=== PATIENT | male | born 1935 | race Caucasian/White ===

== ENCOUNTER 2019-08-09 00:33 | Outpatient (CLI) | payer MEDICARE | END 2019-08-09 00:34 | disposition EMS.NT | LOC: EMS 00:33 | PROVIDERS: ATTEND Surgery | DX: K92.1 Melena (principal); R19.7 Diarrhea, unspecified ==

== ENCOUNTER 2019-08-09 02:06 | Observation (INO) | payer MEDICARE ==
--- NOTE | 2019-08-09 02:14 | ED Physician Documentation ---
History of Present Illness - Stated complaint Stated Complaint: DIARRHEA W/BLOOD - History obtained from History obtained from: Patient (The patient is an otherwise healthy 84-year-old male who had 5 episodes of bright red blood per rectum tonight he came to the emergency room for evaluation he reports mild abdominal pain and cramping denies any syncopal episodes denies any trauma denies taking any anticoagulants or antiplatelets.Patient denies any recent travel outside the country denies any recent antibiotic use. Denies any excessive alcohol use.) Review of Systems Constitutional: reports: Reviewed and negative Eyes: reports: Reviewed and negative Ears: reports: Reviewed and negative Nose: reports: Reviewed and negative Throat: reports: Reviewed and negative Cardiac: reports: Reviewed and negative Respiratory: reports: Reviewed and negative GI: reports: Bloody / black stool : reports: Reviewed and negative Skin: reports: Reviewed and negative Musculoskeletal: reports: Reviewed and negative Neurologic: reports: Reviewed and negative Psychiatric: reports: Reviewed and negative Endocrine: reports: Reviewed and negative Immunocompromised: reports: Reviewed and negative PD PAST MEDICAL HISTORY - Present Medications Home Medications: Ambulatory Orders Medication Instructions Recorded Confirmed Acetaminophen [Tylenol] 650 mg PO Q6H PRN 08/09/19 08/09/19 Aspirin Chewable [St Addy 81 mg PO DAILY 08/09/19 08/09/19 Aspirin] Gabapentin 400 mg PO TID 08/09/19 08/09/19 Tamsulosin HCl [Flomax] 0.4 mg PO DAILY 08/09/19 08/09/19 - Allergies Allergies/Adverse Reactions: Allergies Allergy/AdvReac Type Severity Reaction Status Date / Time No Known Drug Allergies Allergy Verified 08/09/19 02:27 PD ED PE NORMAL - Vitals Vital signs reviewed: Yes - General General: Alert and oriented X 3, No acute distress, Well developed/nourished - HEENT HEENT: Atraumatic, PERRL, Pharynx benign - Neck Neck: Supple, no meningeal sign - Cardiac Cardiac: RRR, No murmur, Strong equal pulses - Respiratory Respiratory: No respiratory distress, Clear bilaterally - Abdomen Abdomen: Normal bowel sounds, Soft, Non tender, Non distended, No organomegaly - Rectal Rectal: Other (Good rectal tone, no obvious fissures or fistulas his Hemoccult is grossly positive there is no obvious rectal masses there is stool in the rectal vault no prostate masses palpated) - Derm Derm: Warm and dry - Extremities Extremities: No deformity, No edema - Neuro Neuro: Alert and oriented X 3, heat treat supervisor 2-12 intact, No motor deficit, No sensory deficit, Normal speech - Psych Psych: Normal mood, Normal affect Results - Vitals Vitals: Vital Signs - 24 hr 08/09/19 08/09/19 08/09/19 02:15 02:43 03:48 Temperature 36.8 C Heart Rate 84 85 77 Respiratory 17 18 16 Rate Blood Pressure 171/98 H 163/92 H 153/74 H O2 Saturation 97 96 96 08/09/19 04:02 Temperature Heart Rate 78 Respiratory 16 Rate Blood Pressure 137/76 H O2 Saturation 96 Oxygen O2 Source Room air - EKG (time done) 02:30 Rate: Other (No STEMI) - Labs Labs: Microbiology 08/09/19 02:30 Occult Blood - Final Stool Laboratory Tests 08/09/19 08/09/19 08/09/19 02:30 02:30 02:30 WBC 6.1 RBC 4.75 Hgb 14.8 Hct 42.8 MCV 90.1 MCH 31.2 H MCHC 34.6 RDW 12.8 Plt Count 173 MPV 11.0 Neut # (Auto) 4.7 Lymph # (Auto) 0.7 L Mchenry # (Auto) 0.5 Eos # (Auto) 0.1 Baso # (Auto) 0.0 Absolute Nucleated RBC 0.00 Nucleated RBC % 0.0 PT 12.8 H INR 1.1 APTT 28.2 Sodium 136 Potassium 3.5 Chloride 104 Carbon Dioxide 24 Anion Gap 8.0 BUN 18 Creatinine 0.9 Estimated GFR (MDRD) 81 L Glucose 119 H Lactic Acid Calcium 8.5 Total Bilirubin 1.1 H AST 33 ALT 27 Alkaline Phosphatase 50 Troponin I High Sens Total Protein 6.6 L Albumin 4.2 Globulin 2.4 Albumin/Globulin Ratio 1.8 Lipase 27 Urine Color Urine Clarity Urine pH Ur Specific [place] Urine Protein Urine Glucose (UA) Urine Ketones Urine Occult Blood Urine Nitrite Urine Bilirubin Urine Urobilinogen Ur Leukocyte Esterase Ur Microscopic Review Urine Culture Comments 08/09/19 08/09/19 08/09/19 02:30 02:30 03:14 WBC RBC Hgb Hct MCV MCH MCHC RDW Plt Count MPV Neut # (Auto) Lymph # (Auto) Mchenry # (Auto) Eos # (Auto) Baso # (Auto) Absolute Nucleated RBC Nucleated RBC % PT INR APTT Sodium Potassium Chloride Carbon Dioxide Anion Gap BUN Creatinine Estimated GFR (MDRD) Glucose Lactic Acid 1.0 Calcium Total Bilirubin AST ALT Alkaline Phosphatase Troponin I High Sens 13.0 Total Protein Albumin Globulin Albumin/Globulin Ratio Lipase Urine Color YELLOW Urine Clarity CLEAR Urine pH 5.5 Ur Specific [place] >=1.030 H Urine Protein NEGATIVE Urine Glucose (UA) NEGATIVE Urine Ketones 15 H Urine Occult Blood NEGATIVE Urine Nitrite NEGATIVE Urine Bilirubin NEGATIVE Urine Urobilinogen 0.2 (NORMAL) Ur Leukocyte Esterase NEGATIVE Ur Microscopic Review NOT INDICATED Urine Culture Comments NOT INDICATED PD MEDICAL DECISION MAKING - ED course Complexity details: considered differential (Lower GI bleed, internal hemorrho ids, Polyps, diverticulitis, diverticulosis, diverticular bleed) - Consults Consults: Discussed case with (gen surg dr gracia and im dr oviedo, will admit, type and screen and keep npo for colonoscopy. patient updated and agreeable to stay) - Critical Care Time(min): 30 Time Includes: Direct patient care, Review records, Reassess patient, Document care, Coordinate care, Medical consult Procedures included in critical care time: Peripheral IV, Blood draw Procedures excluded from critical care time: EKG Departure - Departure Disposition: 66 [facility] DC/Xfer Clinical Impression: Rectal bleeding, Diverticular hemorrhage
[2019-08-09 02:44] LABS: BASOPHILS % (AUTO) 0.5 %; EOSINOPHILS # (AUTO) 0.1 10^3/uL (0.0-0.7); EOSINOPHILS % (AUTO) 1.1 %; HGB - HEMOGLOBIN 14.8 g/dL (14.0-18.0); LYMPHOCYTES # (AUTO) 0.7 10^3/uL (1.5-3.5); LYMPHOCYTES % (AUTO) 11.7 %; MEAN CORPUSCULAR HEMOGLOBIN 31.2 pg (27.0-31.0); MEAN CORPUSCULAR HGB CONC 34.6 g/dL (32.0-36.0); MEAN CORPUSCULAR VOLUME 90.1 fL (80.0-94.0); MONOCYTES # (AUTO) 0.5 10^3/uL (0.0-1.0); MONOCYTES % (AUTO) 8.4 %; NEUTROPHILS # (AUTO) 4.7 10^3/uL (1.5-6.6); NEUTROPHILS % (AUTO) 77.8 %; PLT - PLATELET COUNT 173 10^3/uL (130-450); RED BLOOD COUNT 4.75 10^6/uL (4.70-6.10); RED CELL DISTRIBUTION WIDTH 12.8 % (12.0-15.0); WHITE BLOOD COUNT 6.1 x10^3/uL (4.8-10.8)
--- NOTE | 2019-08-09 02:57 | XRAY Report ---
Reason: cp Procedure Date: 08/09/2019 Accession Number: [id number] / [id number] Procedure: XR - Chest 1 View X-Ray CPT Code: 87138 Final Report FULL RESULT: EXAM: CHEST RADIOGRAPHY EXAM DATE: 08/09/2019 02:52 AM. CLINICAL HISTORY: Cp. COMPARISON: None. TECHNIQUE: 1 view. FINDINGS: Lungs/Pleura: No focal opacities evident. No pleural effusion. No pneumothorax. Mediastinum: Within exam limitations, the cardiomediastinal contour is normal. Other: None. IMPRESSION: Normal single view chest. RADIA
[2019-08-09 03:00] LABS: INR 1.1 (0.8-1.2); PT - PROTHROMBIN TIME 12.8 secs (9.9-12.6)
[2019-08-09 03:07] LABS: PARTIAL THROMBOPLASTIN TIME 28.2 secs (24.9-33.3)
[2019-08-09 03:21] LABS: ALBUMIN 4.2 g/dL (3.2-5.5); ALBUMIN/GLOBULIN RATIO 1.8 (1.0-2.2); BILIRUBIN,TOTAL 1.1 mg/dL (0.2-1.0); CALCIUM 8.5 mg/dL (8.5-10.3); CREATININE 0.9 mg/dL (0.6-1.2); TOTAL PROTEIN 6.6 g/dL (6.7-8.2)
[2019-08-09] MEDS ORDERED: IOVERSOL 320 100 ML VIAL IVP ONE ×2 (03:27→03:58)
[2019-08-09 03:36] LABS: BILIRUBIN,URINE NEGATIVE (NEGATIVE); GLUCOSE, URINE (UA) NEGATIVE (NEGATIVE); KETONES,URINE (UA) 15 mg/dL (NEGATIVE); LEUKOCYTE ESTERASE, URINE NEGATIVE (NEGATIVE); NITRITE,URINE NEGATIVE (NEGATIVE); OCCULT BLOOD,URINE NEGATIVE (NEGATIVE); PH,URINE 5.5 PH (5.0-7.5); PROTEIN,URINE NEGATIVE (NEGATIVE); UROBILINOGEN,URINE 0.2 (NORMAL) E.U./dL (NORMAL)
[2019-08-09 03:40] LABS: CLARITY,URINE CLEAR (CLEAR)
--- NOTE | 2019-08-09 04:07 | CT Report ---
Reason: abd pain brbpr Procedure Date: 08/09/2019 Accession Number: [id number] / [id number] Procedure: CT - Abdomen/Pelvis W CPT Code: Final Report FULL RESULT: EXAM: CT ABDOMEN AND PELVIS EXAM DATE: 08/09/2019 03:38 AM. CLINICAL HISTORY: Abdominal pain with bright red blood per rectum. COMPARISONS: None. TECHNIQUE: Routine helical CT imaging was performed through the abdomen and pelvis. IV contrast: OPTIRAY 320. Enteric contrast: No. Reconstructions: Coronal and sagittal. In accordance with CT protocol optimization, one or more of the following dose reduction techniques were utilized for this exam: automated exposure control, adjustment of mA and/or KV based on patient size, or use of iterative reconstructive technique. FINDINGS: Lung Bases: No focal consolidation seen. Small hiatal hernia. Liver: Possible fatty infiltration. Gallbladder/Bile Ducts: Unremarkable. Spleen: Normal. Pancreas: Normal. Adrenal Glands: Normal. Kidneys: Right renal cysts measuring up to 4.3 cm. No imaging follow-up is recommended per consensus recommendations based on imaging criteria. No mass or hydronephrosis seen bilaterally. Peritoneal Cavity/Bowel: No bowel obstruction seen. No free air or free fluid. Colonic diverticulosis without definite evidence of diverticulitis. There is some increased attenuation in the lumen of the sigmoid colon which could represent hemorrhage such as diverticular hemorrhage, for example series 3 image 70. No lymphadenopathy seen. Appendix appears normal. Pelvic Organs: Normal. The bladder and visualized pelvic organs are within normal limits. Vasculature: Moderate atherosclerosis. No aneurysm seen. Bones: Degenerative changes and postoperative changes in the spine. Grade 1 degenerative spondylolisthesis at L3-L4. Other: None. IMPRESSION: 1. Extensive colonic diverticulosis. Possible diverticular hemorrhage in the sigmoid colon. 2. No acute inflammatory or obstructive process seen in the abdomen or pelvis. 3. Possible fatty liver. 4. Small hiatal hernia. RADIA The critical result notification system was initiated by Dr. Chano Briseno at 04:02 AM on 08/09/2019. The above critical result findings were discussed with Jorge Olivares by Dr. Chano Briseno at 04:05 AM on 08/09/2019.
[2019-08-09] MEDS ORDERED: SODIUM CHLORIDE FLUSH 0.9% 10 ML SYRINGE IVP PRN (04:15)
[2019-08-09] MEDS ORDERED: MORPHINE 2 MG/ML CARPUJECT IVP PRN (04:15)
[2019-08-09] MEDS ORDERED: ONDANSETRON 4 MG/2 ML VIAL IVP PRN (04:15)
--- NOTE | 2019-08-09 04:20 | HISTORY & PHYSICAL EXAMINATION ---
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 He states his symptoms first began at around 5 PM and he had to more episodes of a large amount of bright red blood per rectum. He states he had similar symptoms 5 to 6 years ago which resolved on their own. He had a prior colonoscopy about 5 years ago which showed diverticulosis. He states he ate peanuts earlier on in the day which she feels may have exacerbated the bleeding. He reports some lower abdominal cramping associated with the bleeding as well as diarrhea that began after the bleeding. He reports no significant abdominal pain and denies nausea or vomiting. He re ports no dizziness, lightheadedness, syncope, chest pain, dyspnea. He reports having 3 abdominal surgeries in the past which include umbilical and ventral hernia repairs. He is taking a baby aspirin daily but is not on anticoagulation. In the emergency department, he is found to be hemodynamically stable and his hemoglobin was approximately 15. CT the abdomen pelvis was concerning for active diverticular hemorrhage. This was discussed with general surgery who recommended medicine admission and they will consult for colonoscopy. We did discuss goals of care and he would like to be a full code. History - Past Medical History Cardiovascular: reports: Hypertension Neuro: reports: Other (Neuropathy) : reports: Benign prostate hypertrophy MRSA Hx?: No - Past Surgical History General: reports: Other (Ventral and umbilical hernia repair) Ortho: reports: Spine surgery - Family & Social History Family History Comment/Other: He reports no family history to his knowledge. Living arrangement: At home Living Situation: With spouse/s.o. Social History Notes: He lives at home with his . He does not drink alcohol and denies smoking. - Substance History Use: Uses substance without health or social issues: NONE - POLST Patient has POLST: No Meds/Allgy - Home Medications Home Medications: Ambulatory Orders Medication Instructions Recorded Confirmed Acetaminophen [Tylenol] 650 mg PO Q6H PRN 08/09/19 08/09/19 Aspirin Chewable [St Addy 81 mg PO DAILY 08/09/19 08/09/19 Aspirin] Gabapentin 400 mg PO TID 08/09/19 08/09/19 Magnesium Oxide [Magnesium] ORAL BID 08/09/19 Tamsulosin HCl [Flomax] 0.4 mg PO DAILY 08/09/19 08/09/19 hydroCHLOROthiazide 25 mg PO DAILY 08/09/19 08/09/19 [Hydrochlorothiazide] - Allergies Allergies/Adverse Reactions: Allergies Allergy/AdvReac Type Severity Reaction Status Date / Time No Known Drug Allergies Allergy Verified 08/09/19 02:27 Review of Systems - Constitutional Constitutional: denies: Fatigue, Fever, Chills, Weakness, Poor appetite - Eyes Eyes: denies: Blurred vision - Cardiovascular Cariovascular: denies: Chest pain, Edema, Lightheadedness, Syncope, Exertional dyspnea, Decr. exercise tolerance - Respiratory Respiratory: denies: Cough, SOB at rest, SOB with exertion - Gastrointestinal Gastrointestinal: reports: Abdominal pain, Change in bowel habits, Rectal bleeding, Bloody stools - Genitourinary Genitourinary: denies: Dysuria, Frequency, Urgency, Hematuria - Musculoskeletal Musculoskeletal: denies: Muscle pain - Integumentary Integumentary: denies: Rash - Neurological Neurological: reports: Numbness. denies: General weakness, Focal weakness, Headache, Dizziness - Hematologic/Lymphatic Hematologic/Lymphatic: denies: Anemia, Bleeding tendencies - All Other Systems All Other Systems: reports: Reviewed and negative Prior Level of Functionality: He is independent with ADL's. Exam - Vital Signs Reviewed Vital Signs: Yes Vital Signs: Vital Signs x48h Temp Pulse Resp BP Pulse Ox 08/09/19 04:02 78 16 137/76 H 96 08/09/19 03:48 77 16 153/74 H 96 08/09/19 02:43 85 18 163/92 H 96 08/09/19 02:15 36.8 C 84 17 171/98 H 97 - Physical Exam General Appearance: positive: No acute distress, Alert Eyes Bilateral: positive: Normal inspection, Conjunctivae nml, No scleral icterus ENT: positive: ENT inspection nml Neck: positive: Nml inspection Respiratory: positive: No respiratory distress, Breath sounds nml. negative: Wheezes, Rales Cardiovascular: positive: Regular rate & rhythm, No murmur. negative: Irregularly irregular, Tachycardia, Bradycardia, Systolic murmur, Diastolic murmur Abdomen: positive: Non-tender, Nml bowel sounds, No distention, Other (Prior incisions from hernia repair noted). negative: Tenderness, Guarding, Rebound Skin: positive: No rash, Warm, Dry Extremities: positive: Full ROM, No pedal edema Neurologic/Psychiatric: positive: Oriented x3, Motor nml. negative: Disoriented to person, Disoriented to place, Disoriented to time Conclusion/Plan - Problem List (1) Diverticular hemorrhage Conclusion/Plan: His GI bleed is likely secondary to diverticular hemorrhage given the CT scan findings. His hemoglobin is fortunately stable and he is hemodynamically stable as well. We will make him n.p.o. and start him on lactated Ringer's IV. Morphine and Zofran as needed. General surgery has been consulted for colonoscopy. Trend hemoglobin every 8 hours. Hold his aspirin. (2) Hypertension Conclusion/Plan: He is slightly hypertensive with systolic in the 140s. We will hold his hydrochlorothiazide for the time being given the GI bleed. Qualifiers: Hypertension type: essential hypertension Qualified Code(s): I10 - Essential (primary) hypertension (3) Neuropathy Conclusion/Plan: This is secondary to spinal surgery. We will continue his home gabapentin. (4) BPH (benign prostatic hyperplasia) Conclusion/Plan: We will continue his home Flomax once he is taking p.o. - Lab Results Lab results reviewed: Yes Kt Bones: 08/09/19 02:30 08/09/19 02:30 - Diagnostic Imaging Results Diagnostic Imaging Results: positive: Final report reviewed Core Measures - Anticipated LOS I expect patient to be DC'd or transferred within 96 hours.: Yes - Issues Hospital Issues and Management Plan: 84 year old male with suspected diverticular hemorrhage. Will observe for further bleeding and consult general surgery for colonoscopy. - DVT/VTE - Prophylaxis VTE/DVT Device ordered at admit?: Yes VTE/DVT Prophylaxis med ordered at admit?: No Not Ordered - Medical Reason: Contraindicated
[2019-08-09] MEDS: SODIUM CHLORIDE FLUSH 0.9% 10 ML SYRINGE IVP SCH ×3 (05:20→23:31)
[2019-08-09] MEDS: LACTATED RINGERS 1,000 ML IV SCH ×2 (05:20→14:45)
[2019-08-09 08:08] LABS: HGB - HEMOGLOBIN 13.6 g/dL (14.0-18.0)
--- NOTE | 2019-08-09 10:28 | PHARMACY PROGRESS NOTE ---
- Best Possible Medication History Admit Date and Time: 08/09/19 0415 Processed by: Pharmacy Medication History completed: Yes Patient Interview: Completed Secondary Source(s): Pharmacy records As the person ultimately responsible for medication therapy, providers are able to order a medication from an existing home medication list in [facility] via the "Reconcile Routine" prior to Confirmation of that medication by contracting support specialist. Such practice is discouraged except when the physician, in their clinical judgment, deems that a medical need exists for a medication without regard to previous use.
--- NOTE | 2019-08-09 12:14 | CONSULTATION NOTE ---
Referring Provider Name of Referring Provider:: Dr. Olivares, ED Consult Date: 08/09/19 History of Present Illness - Admitted From Admitted From:: ED - History of Present Illness HPI Comment/Other: 84yo M with 12 hours of BRBPR, has had several episodes starting last night. He notes that he is chronically constipated and strains for BMs. He had a particularly large and hard BM yesterday evening and the bleeding started after that. He has known diverticulosis from his CT and from an episode a few years ago that was cramping pain but he was not given antibiotics. He was told then he had it. He was scheduled for a colonoscopy but could not tolerate the prep so it was not done. Never had bleeding episodes. No known hemorrhoids. He has some minimal discomfort and cramps in his pelvis but no pain or nausea. Vitals normal and Hg from 14-> 13 since admission. He is asymptomatic but is very anxious about the ongoing bleeding, which is understandable. He is generally in good health. He sees a PCP regularly who is associated with Amparo Ochoa. He has had two ventral hernia repairs but no other abdominal surgeries. History - Past Medical History Cardiovascular: reports: Hypertension Neuro: reports: Other (Neuropathy) GI: reports: Diverticulitis : reports: Benign prostate hypertrophy MRSA Hx?: No - Past Surgical History General: reports: Other (Ventral and umbilical hernia repair) Ortho: reports: Spine surgery - Family & Social History Family History Comment/Other: He reports no family history to his knowledge. Living arrangement: At home Living Situation: With spouse/s.o. Social History Notes: He lives at home with his . He does not drink alcohol and denies smoking. - Substance History Use: Uses substance without health or social issues: NONE - POLST Patient has POLST: No Meds/Allgy - Home Medications Home Medications: Ambulatory Orders Medication Instructions Recorded Confirmed Acetaminophen 500 mg PO BID 08/09/19 08/09/19 Aspirin Chewable [St Addy 81 mg PO DAILY 08/09/19 08/09/19 Aspirin] Gabapentin 400 mg PO DAILY 08/09/19 08/09/19 Gabapentin 800 mg PO QPM 08/09/19 08/09/19 Magnesium Malate 70 mg PO DAILY 08/09/19 08/09/19 Magnesium Malate 140 mg PO QPM 08/09/19 08/09/19 Tamsulosin HCl [Flomax] 0.4 mg PO DAILY 08/09/19 08/09/19 Trazodone HCl 50 mg PO QPM 08/09/19 08/09/19 hydroCHLOROthiazide 25 mg PO DAILY 08/09/19 08/09/19 [Hydrochlorothiazide] - Allergies Allergies/Adverse Reactions: Allergies Allergy/AdvReac Type Severity Reaction Status Date / Time No Known Drug Allergies Allergy Verified 08/09/19 02:27 Review of Systems - Gastrointestinal Gastrointestinal: reports: Constipation, Rectal bleeding - All Other Systems All Other Systems: reports: Reviewed and negative Exam - Vital Signs Reviewed Vital Signs: Yes Vital Signs: Vital Signs x48h Temp Pulse Pulse Resp BP BP Pulse Ox 08/09/19 08:45 36.6 C 81 18 154/78 H 98 08/09/19 05:06 36.8 C 82 16 146/77 H 98 08/09/19 04:36 85 16 152/77 H 96 - Physical Exam Comments/Other: AAO, NAD, overweight male EOMI, MMM unlabored RA soft, moderately protuberant, nt/nd MAEW skin dry and warm Conclusion and Plan - Lab Results Microbiology Results 08/09/19 02:30 Stool Occult Blood - Final Laboratory Results 08/09/19 07:58: Hgb 13.6 L, Hct 40.6 L 08/09/19 04:15: Blood Type A NEGATIVE, Antibody Screen NEGATIVE 08/09/19 03:14: Urine Color YELLOW, Urine Clarity CLEAR, Urine pH 5.5, Ur Specific [place] >=1.030 H, Urine Protein NEGATIVE, Urine Glucose (UA) NEGATIVE, Urine Ketones 15 H, Urine Occult Blood NEGATIVE, Urine Nitrite NEGATIVE, Urine Bilirubin NEGATIVE, Urine Urobilinogen 0.2 (NORMAL), Ur Leukocyte Esterase NEGATIVE, Ur Microscopic Review NOT INDICATED, Urine Culture Comments NOT INDICATED 08/09/19 02:35: Blood Type Recheck A NEGATIVE 08/09/19 02:30: Troponin I High Sens 13.0 08/09/19 02:30: Lactic Acid 1.0 08/09/19 02:30: Sodium 136, Potassium 3.5, Chloride 104, Carbon Dioxide 24, Anion Gap 8.0, BUN 18, Creatinine 0.9, Estimated GFR (MDRD) 81 L, Glucose 119 H, Calcium 8.5, Total Bilirubin 1.1 H, AST 33, ALT 27, Alkaline Phosphatase 50, Total Protein 6.6 L, Albumin 4.2, Globulin 2.4, Albumin/Globulin Ratio 1.8, Lipase 27 08/09/19 02:30: PT 12.8 H, INR 1.1, APTT 28.2 08/09/19 02:30: WBC 6.1, RBC 4.75, Hgb 14.8, Hct 42.8, MCV 90.1, MCH 31.2 H, MCHC 34.6, RDW 12.8, Plt Count 173, MPV 11.0, Neut # (Auto) 4.7, Lymph # (Auto) 0.7 L, Taliaferro # (Auto) 0.5, Eos # (Auto) 0.1, Baso # (Auto) 0.0, Absolute Nucleated RBC 0.00, Nucleated RBC % 0.0 - Diagnostic Imaging Results Diagnostic Imaging Results: positive: Final report reviewed - Diagnosis Diagnosis: blood per rectum. diverticulosis - Plan Plan: - spoke at length about the diagnosis and most likely pathology --> moderate volume BRBPR is generally internal hemorrhoids or diverticulosis. given his known diverticulosis on CT and his history of a particularly straining BM before onset, most likely this is his source. --> he defers rectal exam as he is sore from his numerous liquid BMs --> the vast majority of these are self-limiting and he has no concerning changes to Hg, vital signs, or symptoms; he is having ongoing bleeding for now so will be closely monitored --> in normal circumstances, we would prep and proceed with a diagnostic and possibly therapeutic colonoscopy. however, we are in the midst of the COVID crisis and the algorithm is changed. particularly in this patient where we have a highly likely source and the therapeutic options are usually limited. given all of this, we will plan to continue to closely monitor symptoms, vitals, and Hg. if he continues to having bleeding episodes, we will scope tomorrow. if continued bleeding after that, will look into transfer to a facility with IR --> pt understands and agrees to plan - ok for CLD today - will address his chronic constipation before discharge
[2019-08-09] MEDS: GABAPENTIN 400 MG CAPSULE PO SCH ×2 (13:29→20:34)
[2019-08-09 15:30] LABS: HGB - HEMOGLOBIN 12.2 g/dL (14.0-18.0)
[2019-08-09] MEDS ORDERED: traZODone 50 MG TABLET PO SCH (21:00)
[2019-08-09] MEDS ORDERED: MAGNESIUM OXIDE 400 MG TABLET PO SCH (21:00)
[2019-08-10] MEDS: LACTATED RINGERS 1,000 ML IV SCH (00:03)
[2019-08-10 05:23] LABS: BASOPHILS % (AUTO) 0.3 %; EOSINOPHILS % (AUTO) 0.3 %; HGB - HEMOGLOBIN 8.9 g/dL (14.0-18.0); MEAN CORPUSCULAR HEMOGLOBIN 30.9 pg (27.0-31.0); MEAN CORPUSCULAR HGB CONC 33.7 g/dL (32.0-36.0); MEAN CORPUSCULAR VOLUME 91.7 fL (80.0-94.0); MEAN PLATELET VOLUME 11.3 fL (7.4-11.4); MONOCYTES # (AUTO) 0.6 10^3/uL (0.0-1.0); NEUTROPHILS # (AUTO) 6.9 10^3/uL (1.5-6.6); NEUTROPHILS % (AUTO) 79.9 %; PLT - PLATELET COUNT 171 10^3/uL (130-450); RED BLOOD COUNT 2.88 10^6/uL (4.70-6.10); RED CELL DISTRIBUTION WIDTH 13.1 % (12.0-15.0); WHITE BLOOD COUNT 8.6 x10^3/uL (4.8-10.8)
[2019-08-10 05:34] LABS: CALCIUM 7.8 mg/dL (8.5-10.3); CREATININE 0.9 mg/dL (0.6-1.2); MAGNESIUM 2.1 mg/dL (1.7-2.8); PHOSPHORUS 2.5 mg/dL (2.5-4.6)
[2019-08-10] MEDS: GABAPENTIN 400 MG CAPSULE PO SCH (05:50)
[2019-08-10] MEDS: SODIUM CHLORIDE FLUSH 0.9% 10 ML SYRINGE IVP SCH (07:59)
[2019-08-10 11:38] VITALS: BP 116/50
--- NOTE | 2019-08-10 11:44 | PROVIDER PROGRESS NOTE ---
Subjective - General Admit Date: 08/09/19 - Other Other Information/Narrative: Doing well this morning, through yesterday evening and overnight the bloody BMs decreased; he only had one early this AM. Cramps have diminished. Hg has trended down but not unexpected after his larger volume stools earlier yesterday. He feels better and wants to go home. Objective - Patient Data Reviewed Vital Signs: Yes Vital Signs: Vital Signs x48h Temp Pulse Resp BP Pulse Ox 08/10/19 11:35 36.6 C 84 18 116/50 L 97 08/10/19 09:00 36.7 C 92 18 99/53 L 96 08/10/19 04:30 36.8 C 98 16 116/56 L 95 Weight: Weight 08/08/19 08/09/19 08/10/19 23:59 23:59 23:59 Weight (kg) 86.5 kg Intake & Output: Intake and Output Totals x24h 08/08/19 08/09/19 08/10/19 23:59 23:59 23:59 Intake Total 2241.667 2380 Output Total 1 Balance 2241.667 2379 - Lab Results Lab Results: 08/10/19 04:45 08/10/19 04:45 Other Lab Results: Lab Results x24hrs 08/10/19 08/10/19 08/09/19 Range/Units 04:45 04:45 22:06 WBC 8.6 (4.8-10.8) x10^3/uL RBC 2.88 L (4.70-6.10) 10^6/uL Hgb 8.9 L 10.0 L (14.0-18.0) g/dL Hct 26.4 L (42.0-52.0) % MCV 91.7 (80.0-94.0) fL MCH 30.9 (27.0-31.0) pg MCHC 33.7 (32.0-36.0) g/dL RDW 13.1 (12.0-15.0) % Plt Count 171 (130-450) 10^3/uL MPV 11.3 (7.4-11.4) fL Neut # (Auto) 6.9 H (1.5-6.6) 10^3/uL Lymph # (Auto) 1.0 L (1.5-3.5) 10^3/uL [place] # (Auto) 0.6 (0.0-1.0) 10^3/uL Eos # (Auto) 0.0 (0.0-0.7) 10^3/uL Baso # (Auto) 0.0 (0.0-0.1) 10^3/uL Absolute Nucleated RBC 0.00 x10^3/uL Nucleated RBC % 0.0 /100WBC Sodium 136 (135-145) mmol/L Potassium 3.7 (3.5-5.0) mmol/L Chloride 103 (101-111) mmol/L Carbon Dioxide 27 (21-32) mmol/L Anion Gap 6.0 (6-13) BUN 18 (6-20) mg/dL Creatinine 0.9 (0.6-1.2) mg/dL Estimated GFR (MDRD) 81 L (>89) Glucose 129 H (70-100) mg/dL Calcium 7.8 L (8.5-10.3) mg/dL Phosphorus 2.5 (2.5-4.6) mg/dL Magnesium 2.1 (1.7-2.8) mg/dL 08/09/19 Range/Units 15:05 WBC (4.8-10.8) x10^3/uL RBC (4.70-6.10) 10^6/uL Hgb 12.2 L (14.0-18.0) g/dL Hct 35.7 L (42.0-52.0) % MCV (80.0-94.0) fL MCH (27.0-31.0) pg MCHC (32.0-36.0) g/dL RDW (12.0-15.0) % Plt Count (130-450) 10^3/uL MPV (7.4-11.4) fL Neut # (Auto) (1.5-6.6) 10^3/uL Lymph # (Auto) (1.5-3.5) 10^3/uL [place] # (Auto) (0.0-1.0) 10^3/uL Eos # (Auto) (0.0-0.7) 10^3/uL Baso # (Auto) (0.0-0.1) 10^3/uL Absolute Nucleated RBC x10^3/uL Nucleated RBC % /100WBC Sodium (135-145) mmol/L Potassium (3.5-5.0) mmol/L Chloride (101-111) mmol/L Carbon Dioxide (21-32) mmol/L Anion Gap (6-13) BUN (6-20) mg/dL Creatinine (0.6-1.2) mg/dL Estimated GFR (MDRD) (>89) Glucose (70-100) mg/dL Calcium (8.5-10.3) mg/dL Phosphorus (2.5-4.6) mg/dL Magnesium (1.7-2.8) mg/dL - Current Medications Current Medications: Current Medications Generic Name Dose Route Start Last Admin Trade Name Davonteq PRN Reason Stop Dose Admin Gabapentin 400 mg 08/09/19 14:00 08/10/19 05:50 Neurontin PO 400 mg TID MELODIE Administration Magnesium Oxide 400 mg 08/09/19 21:00 08/09/19 20:34 Mag Ox PO 400 mg QPM MELODIE Administration Sodium Chloride 10 ml 08/09/19 09:00 08/10/19 07:59 Normal Saline Flush 0.9% IVP Not Given 0100,0900,1700 MELODIE Trazodone HCl 50 mg 08/09/19 21:00 08/09/19 20:34 Desyrel PO 50 mg QPM MELODIE Administration - Physical Exam Comments/Other: AAO, NAD EOMI, MMM unlabored RA abd soft MAEW skin warm and dry Impression/Plan - Problem List Problem List: LGIB; Diverticulosis - downtrending Hg likely catching up from losses earlier yesterday; asymptomatic, feeling better, only one bloody BM through evening and overnight - still do not recommend colonoscopy in hospital as situation remains unlikely to bonilla diagnosis or therapeutic benefits - cont' to monitor for plateau of Hg and if he continues to improve ok for d/c later with FU to PCP for scheduling scopes down the road - did review bowel regimen, celio fiber and water intake, to soften BMs; pt understands and his has been reading up on it at home; call our office or PCP with any questions
[2019-08-10 12:54] LABS: HGB - HEMOGLOBIN 8.8 g/dL (14.0-18.0)
--- NOTE | 2019-08-10 13:31 | Discharge Plan ---
Discharge Plan Problem Reviewed?: Yes Disposition: Home, Self Care Condition: Good No Smoking: If you smoke, Please STOP! Call for help. Follow-up with: MERA BROOKS MD [Primary Care Provider] -
--- NOTE | 2019-08-10 15:11 | DISCHARGE SUMMARY ---
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 He states his symptoms first began at around 5 PM and he had to more episodes of a large amount of bright red blood per rectum. He states he had similar symptoms 5 to 6 years ago which resolved on their own. He had a prior colonoscopy about 5 years ago which showed diverticulosis. He states he ate peanuts earlier on in the day which she feels may have exacerbated the bleeding. He reports some lower abdominal cramping associated with the bleeding as well as diarrhea that began after the bleeding. He reports no significant abdominal pain and denies nausea or vomiting. He re ports no dizziness, lightheadedness, syncope, chest pain, dyspnea. He reports having 3 abdominal surgeries in the past which include umbilical and ventral hernia repairs. He is taking a baby aspirin daily but is not on anticoagulation. In the emergency department, he is found to be hemodynamically stable and his hemoglobin was approximately 15. CT the abdomen pelvis was concerning for active diverticular hemorrhage. This was discussed with general surgery who recommended medicine admission and they will consult for colonoscopy. We did discuss goals of care and he would like to be a full code. - CONSULTS | PROCEDURES Consultations: General Surgery - Dr Hope Tabler Procedures: None - HOSPITAL COURSE Hospital Course: Patient was admitted for suspected lower GI bleed, likely from diverticular disease versus internal hemorrhoids. His initial hemoglobin and hematocrit were relatively normal also the patient was observed with difference of the colonoscopy based on current [employer] guidelines to minimize unnecessary procedures during the current coronavirus pandemic. Because the patient was hemodynamically stable, and a known source for the bleeding existed, it was felt to be safe to monitor so the patient was monitored overnight on a clear liquid diet and hemoglobin and hematocrit were repeated in the morning. Overnight his hemoglobin dropped from 10.0-8 point 9 in the morning, so this was rechecked 6 cellular hours later and it was relatively stable at 8.8 and 26.8. He also had several large bowel movements shortly after admission, and these became much less frequent and only had one on the day of discharge. Because the likelihood is that he had clotted the bleeding source, and he was hemodynamically stable, he was deemed to be safe for discharge and advised to pursue outpatient colonoscopy or return to the ER should he become symptomatic or have a return of the gross hematochezia which she presented with. In addition, because the patient does not have a known history of coronary artery disease I have recommended that he discontinue the use of aspirin to help prevent further GI bleed.He was counseled extensively as well on dietary recommendations such as high-fiber, plenty of water, etc. to avoid constipation and straining. - ALLERGIES Allergies/Adverse Reactions: Allergies Allergy/AdvReac Type Severity Reaction Status Date / Time No Known Drug Allergies Allergy Verified 08/09/19 02:27 - MEDICATIONS Home Medications: Ambulatory Orders Medication Instructions Recorded Confirmed Acetaminophen 500 mg PO BID 08/09/19 08/09/19 Gabapentin 400 mg PO DAILY 08/09/19 08/09/19 Gabapentin 800 mg PO QPM 08/09/19 08/09/19 Magnesium Malate 70 mg PO DAILY 08/09/19 08/09/19 Magnesium Malate 140 mg PO QPM 08/09/19 08/09/19 Tamsulosin HCl [Flomax] 0.4 mg PO DAILY 08/09/19 08/09/19 Trazodone HCl 50 mg PO QPM 08/09/19 08/09/19 hydroCHLOROthiazide 25 mg PO DAILY 08/09/19 08/09/19 [Hydrochlorothiazide] Gabapentin [Neurontin] 400 mg PO TID capsule 08/10/19 Magnesium Oxide [Mag Ox] 400 mg PO QPM tablet 08/10/19 - PHYSICAL EXAM AT DISCHARGE General Appearance: positive: No acute distress Eyes Bilateral: positive: Normal inspection ENT: positive: ENT inspection nml Neck: positive: Nml inspection Respiratory: positive: Chest non-tender, No respiratory distress, Breath sounds nml Cardiovascular: positive: Regular rate & rhythm, No murmur, No gallop Abdomen: positive: Non-tender, No organomegaly, Nml bowel sounds Skin: positive: Color nml Neurologic/Psychiatric: positive: Oriented x3, CN's nml (2-12) - LABS Result Diagrams: 08/10/19 12:45 08/10/19 04:45 - FOLLOW UP Follow Up: PCP - TIME SPENT Time Spent in Discharge (Minutes): 32"
== END 2019-08-10 15:17 | disposition home or self-care (01) ==
LOC: ED 02:06 → MS2 04:15
PROVIDERS: ADMIT Internal Medicine; ATTEND Family Medicine Sports Medicine
DX: K57.31 Diverticulosis of large intestine without perforation or abscess with bleeding (principal); I10 Essential (primary) hypertension; G62.9 Polyneuropathy, unspecified; Z79.82 Long term (current) use of aspirin; N40.0 Benign prostatic hyperplasia without lower urinary tract symptoms; K59.09 Other constipation
CPT/HCPCS: 36415; 71045; 74177; 80048; 80053; 81003; 82272; 83605; 83690; 83735; 84100; 84484; 85014; 85018; 85025; 85610; 85730; 86850; 86900; 86901; 93005; 96360; 96361; 99285; 99291; A9270; G0378; J7120; Q9967; 81001; 87086

== ENCOUNTER 2020-05-22 00:13 | Observation (INO) | payer MEDICARE, OTHER ==
[2020-05-22 00:49] LABS: BASOPHILS % (AUTO) 0.3 %; EOSINOPHILS # (AUTO) 0.1 10^3/uL (0.0-0.7); EOSINOPHILS % (AUTO) 1.6 %; HGB - HEMOGLOBIN 15.9 g/dL (14.0-18.0); LYMPHOCYTES % (AUTO) 11.5 %; MEAN CORPUSCULAR HEMOGLOBIN 30.3 pg (27.0-31.0); MEAN CORPUSCULAR HGB CONC 33.3 g/dL (32.0-36.0); MEAN PLATELET VOLUME 11.5 fL (7.4-11.4); MONOCYTES # (AUTO) 0.7 10^3/uL (0.0-1.0); MONOCYTES % (AUTO) 7.5 %; NEUTROPHILS # (AUTO) 6.9 10^3/uL (1.5-6.6); NEUTROPHILS % (AUTO) 78.9 %; PLT - PLATELET COUNT 192 10^3/uL (130-450); RED BLOOD COUNT 5.25 10^6/uL (4.70-6.10); WHITE BLOOD COUNT 8.8 x10^3/uL (4.8-10.8)
[2020-05-22 01:02] LABS: ALBUMIN 4.7 g/dL (3.2-5.5); BILIRUBIN,TOTAL 0.9 mg/dL (0.2-1.0); CALCIUM 9.3 mg/dL (8.5-10.3); CREATININE 0.9 mg/dL (0.6-1.2)
--- NOTE | 2020-05-22 01:21 | ED Physician Documentation ---
PD HPI GI BLEED - Stated complaint Stated Complaint: RECTAL BLEEDING - Chief complaint Chief Complaint: Abd Pain - History obtained from History obtained from: Patient - History of Present Illness Timing - onset: Enter time (2100), Today Timing - duration: Hours Timing - details: Abrupt onset, Still present Associated symptoms: BRBPR Contributing factors: Aspirin use. No: Sick contact, Bad food, Travel, Recent antibiotics, Alcohol use, NSAID use, Stress, Anticoagulated, Diabetes Similar symptoms before: Diagnosis (rectal bleed site of bleeding never investigated.) Recently seen: Not recently seen - Additional information Additional information: 84-year-old male with history of diverticulitis, cardiomyopathy and prior GI bleeding has developed GI bleeding again. He notes that at about 930 this evening he had a bloody bowel movement after a brief episode of cramping abdominal pain. He had a second episode at 11 PM. He decided to make his way to the hospital because he has had this previously and with the previous episode he bled quite a bit was hospitalized for 2 days before bleeding ceased. The patient bled from a normal hematocrit down to 26.4. He did not require transfusion but he was unable to get the follow-up colonoscopy done. During the summer he did have an episode of fatigue and was eventually diagnosed with a cardiomyopathy and he has been on a diuretic. He does not his knowledge have any coronary disease. He has had 2 prior abdominal surgeries with a ventral hernia repair and an umbilical hernia repair. He did have colonoscopy done about 6 years ago and at that stage she did not tolerate the prep he became quite ill with that and they attempted to do the colonoscopy and found that the prep was insufficient. Review of Systems Constitutional: denies: Fever Eyes: denies: Decreased vision Ears: denies: Ear pain Nose: denies: Rhinorrhea / runny nose, Congestion Throat: denies: Sore throat Cardiac: denies: Chest pain / pressure, Palpitations Respiratory: denies: Dyspnea, Cough GI: reports: Abdominal Pain, Bloody / black stool. denies: Nausea, Vomiting, Constipation, Diarrhea : denies: Dysuria, Frequency Skin: denies: Rash Musculoskeletal: denies: Neck pain, Back pain, Extremity pain PD PAST MEDICAL HISTORY - Past Medical History Past Medical History: Yes Cardiovascular: Hypertension Neuro: Other GI: Diverticulitis, Other : Benign prostate hypertrophy Other Past Medical History: GIB - Past Surgical History Past Surgical History: Yes General: Other Ortho: Spine surgery - Present Medications Home Medications: Ambulatory Orders Medication Instructions Recorded Confirmed Acetaminophen 500 mg PO BID 08/09/19 05/22/20 Gabapentin 400 mg PO DAILY 08/09/19 08/09/19 Gabapentin 800 mg PO QPM 08/09/19 08/09/19 Magnesium Malate 70 mg PO DAILY 08/09/19 08/09/19 Magnesium Malate 140 mg PO QPM 08/09/19 08/09/19 Tamsulosin HCl [Flomax] 0.4 mg PO DAILY 08/09/19 05/22/20 Trazodone HCl 50 mg PO QPM 08/09/19 05/22/20 hydroCHLOROthiazide 25 mg PO DAILY 08/09/19 05/22/20 [Hydrochlorothiazide] Gabapentin [Neurontin] 400 mg PO TID capsule 08/10/19 05/22/20 Magnesium Oxide [Mag Ox] 400 mg PO QPM tablet 08/10/19 - Allergies Allergies/Adverse Reactions: Allergies Allergy/AdvReac Type Severity Reaction Status Date / Time No Known Drug Allergies Allergy Verified 05/22/20 00:24 - Social History Does the pt smoke?: No Smoking Status: Never smoker Does the pt drink ETOH?: No Does the pt have substance abuse?: No - Immunizations Immunizations are current?: Yes - POLST Patient has POLST: No PD ED PE NORMAL - Vitals Vital signs reviewed: Yes (hypertensive ) - General General: Alert and oriented X 3, No acute distress, Well developed/nourished - HEENT HEENT: Atraumatic, PERRL, EOMI - Neck Neck: Supple, no meningeal sign, No bony TTP - Cardiac Cardiac: RRR, No murmur - Respiratory Respiratory: No respiratory distress, Clear bilaterally - Abdomen Abdomen: Normal bowel sounds, Soft, Non tender, Non distended - Back Back: No CVA TTP, No spinal TTP - Derm Derm: Normal color, Warm and dry, No rash - Extremities Extremities: No deformity, No edema - Neuro Neuro: Alert and oriented X 3, 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, No motor deficit, No sensory deficit, Normal speech Eye Opening: Spontaneous Motor: Obeys Commands Verbal: Oriented GCS Score: 15 - Psych Psych: Normal mood, Normal affect Results - Vitals Vitals: Vital Signs - 24 hr 05/22/20 05/22/20 00:21 00:23 Temperature 36.2 C L 36.2 C L Heart Rate 91 78 Respiratory 16 17 Rate Blood Pressure 190/84 H 166/91 H O2 Saturation 96 95 Oxygen O2 Source Room air - Labs Labs: Laboratory Tests 05/22/20 05/22/20 05/22/20 00:35 00:35 00:48 WBC 8.8 RBC 5.25 Hgb 15.9 Hct 47.8 MCV 91.0 MCH 30.3 MCHC 33.3 RDW 13.0 Plt Count 192 MPV 11.5 H Neut # (Auto) 6.9 H Lymph # (Auto) 1.0 L [place] # (Auto) 0.7 Eos # (Auto) 0.1 Baso # (Auto) 0.0 Absolute Nucleated RBC 0.00 Nucleated RBC % 0.0 Sodium 137 Potassium 3.8 Chloride 104 Carbon Dioxide 24 Anion Gap 9.0 BUN 18 Creatinine 0.9 Estimated GFR (MDRD) 81 L Glucose 121 H Calcium 9.3 Total Bilirubin 0.9 AST 32 ALT 30 Alkaline Phosphatase 59 Total Protein 7.0 Albumin 4.7 Globulin 2.3 Albumin/Globulin Ratio 2.0 Lipase 23 Blood Type A NEGATIVE Antibody Screen NEGATIVE PD MEDICAL DECISION MAKING - ED course Complexity details: reviewed old records, reviewed results, re-evaluated patient, considered differential, d/w patient ED course: 84-year-old male with a prior history of GI bleed and has again developed bright red blood per rectum he has had another episode here while he has been here in the emergency department of a fair amount of blood out per rectum and he has had a prior history where he had bleeding for 2 days and nearly required transfusion. In anticipation of hospitalization a coronavirus PCR is obtained. The patient has been immunized he has received his first dose 1 week ago. I discussed the case with our hospitalist Dr. Cat and she will put the patient into the hospital for observation. Departure - Departure Disposition: ED Place in Observation Clinical Impression: Rectal bleeding
[2020-05-22] MEDS ORDERED: SODIUM CHLORIDE FLUSH 0.9% 10 ML SYRINGE IVP PRN (01:42)
[2020-05-22] MEDS ORDERED: oxyCODONE 5 MG TABLET PO PRN (01:42)
[2020-05-22] MEDS ORDERED: ONDANSETRON 4 MG/2 ML VIAL IVP PRN (01:42)
[2020-05-22] MEDS ORDERED: ONDANSETRON ODT 4 MG TABLET TL PRN (01:42)
[2020-05-22] MEDS ORDERED: ACETAMINOPHEN 325 MG TABLET PO PRN (01:42)
--- NOTE | 2020-05-22 01:53 | HISTORY & PHYSICAL EXAMINATION ---
Chief Complaint - Chief Complaint Chief Complaint: Bright red blood per rectum History of Present Illness - Admitted From Admitted From:: Home - History Obtained From Records Reviewed: [facility] History obtained from: Patient and Dr. Pichardo Exam Limitations: None - History of Present Illness HPI Comment/Other: This is an 84-year-old gentleman who has a history of probable diverticulosis from a colonoscopy 6 years ago, previous history of lower GI bleed July 2019, and now returns with recurrent rectal bleeding. He states that the colonoscopy 6 years ago was very difficult to do but there was no cancer. Just diverti culosis. In July 2019 (in the middle of the Covid crisis) he had bright red blood per rectum. He was on a daily baby aspirin. In the emergency room he was hemodynamically stable and his hemoglobin was 15. CT of the abdomen and pelvis was concerning for active diverticular hemorrhage. Over the course of his stay his hemoglobin dropped to 8.8. He then stabilized. Did not require transfusion. He did not get a colonoscopy at that time because of the recommendations for reducing elective procedures in the midst of Covid. Between then and now, the patient has not been seen for colonoscopy. He did see cardiology (Dr. Beltran @ [facility])who put him on a diuretic for a diagnosis Of viral cardiomyopathy with fluid retention. Nobody ever really said he needed to follow-up colonoscopy, and his primary care provider (Dr Alistair Glover @ [facility] in [place]) felt that no further treatment was needed. The patient tends toward chronic constipation. That is been present all of his life. He uses a laxative with a mild stool softener, but does not drink much water. This current episode of bleeding is not associated with abdominal pain. He did have cramping. But no pain. No recent change in bowel or bladder habits. Has been eating a normal diet for him. No change in activities. He now presents with a bloody bowel movement that started after having severe crampy abdominal pain around 9:30 in the evening. In the emergency room he has had 3 bloody bowel movements. No fever, no chills. Blood pressure is hypertensive at 1661 90 systolic. He is not tachycardic. Hemoglobin is 15.9. Platelets 192. We are now placing him in observation for another possible lower GI bleed. History - Past Medical History Cardiovascular: reports: Congestive heart failure (viral cardiomyopathy. Dr. Beltran, Cardiology, [facility]), Hypertension Neuro: reports: Peripheral neuropathy (w chronic right leg numbness), Other (spinal stenosis w surgery) GI: reports: GI bleed (07/2019), Diverticulitis : reports: Benign prostate hypertrophy HEENT: reports: Other (cataracts. left eye done a few months ago) Psych: reports: Depression (due to adjustment disorder since son's 08/2019) Musculoskeletal: reports: Osteoarthritis (mild) MRSA Hx?: No - Past Surgical History General: reports: Other (ventral and umbilical hernia repairs) Ortho: reports: Spine surgery (3 times) HEENT: reports: Cataracts - Family & Social History Family History Comment/Other: Mom committed suicide around the age of 60. His parents marriage was a hard 1. His dad was kind of a "hard ass" and was abusive toward his mom. He decided to retire and he thinks his mom just could not take the idea of being home with them and kill herself. Dad around age 70 of congestive heart failure. 1 sister who is developing dementia. 2 sons. 1 of sudden due to obstructive sleep apnea and enlarged heart in August 2019. Other son is completely healthy in [place]. Living arrangement: At home Living Situation: With spouse/s.o. Social History Notes: He lives at home with his Second . He does not drink alcohol and denies smoking.Most of his life is spent in the [place] area. 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 He and his second had an initial home in [place] years ago. They only live there in the summer. That was about 15 years. Then they went to [place] and did not like it very much and came back to [place] and has lived in their own home for 15 years more. - Substance History Use: Uses substance without health or social issues: NONE Abuse: Recurrent use of substance despite neg consequences: NONE Dependence: Experiences withdrawal or developed tolerances: NONE - POLST Patient has POLST: No POLST Status: Full Code Meds/Allgy - Home Medications Home Medications: Ambulatory Orders Medication Instructions Recorded Confirmed Acetaminophen 500 mg PO BID 08/09/19 05/22/20 Gabapentin 400 mg PO DAILY 08/09/19 08/09/19 Gabapentin 800 mg PO QPM 08/09/19 08/09/19 Magnesium Malate 70 mg PO DAILY 08/09/19 08/09/19 Magnesium Malate 140 mg PO QPM 08/09/19 08/09/19 Tamsulosin HCl [Flomax] 0.4 mg PO DAILY 08/09/19 05/22/20 Trazodone HCl 50 mg PO QPM 08/09/19 05/22/20 hydroCHLOROthiazide 25 mg PO DAILY 08/09/19 05/22/20 [Hydrochlorothiazide] Gabapentin [Neurontin] 400 mg PO TID capsule 08/10/19 05/22/20 Magnesium Oxide [Mag Ox] 400 mg PO QPM tablet 08/10/19 - Allergies Allergies/Adverse Reactions: Allergies Allergy/AdvReac Type Severity Reaction Status Date / Time No Known Drug Allergies Allergy Verified 05/22/20 00:24 Review of Systems - Constitutional Constitutional: denies: Fatigue, Fever, Chills, Malaise, Poor appetite, Diaphoresis, Night sweats, Weight gain, Weight loss - Eyes Eyes: reports: Corrective lenses. denies: Pain, Irritation, Amaurosis, Blurred vision, Field loss, Vision loss, Dipolpia - Ears, Nose & Throat Ears, Nose & Throat: denies: Hearing loss, Hearing aids, Tinnitus, Vertigo, Nasal pain, Dentures, Sore throat - Cardiovascular Cariovascular: reports: Edema, Exertional dyspnea (In the summer. But once he was on a diuretic that is gone away.). denies: Irregular heart rate, Palpitations, Chest pain, Lightheadedness, Syncope, Decr. exercise tolerance - Respiratory Respiratory: denies: Cough, Sputum production, Wheezing, Snoring, Orthopnea, SOB at rest, SOB with exertion - Gastrointestinal Gastrointestinal: reports: Constipation, Rectal bleeding, Bloody stools. denies: Abdominal pain, Abdominal distention, Diarrhea, Change in bowel habits, Nausea, Vomiting, Reflux/heartburn, Bloating - Genitourinary Genitourinary: reports: Frequency, Urgency, Nocturia. denies: Dysuria - Musculoskeletal Musculoskeletal: reports: Back pain (Mild after his third surgery. He is very careful with his back.), Joint pain. denies: Muscle pain, Muscle aches - Integumentary Integumentary: reports: Other (Mild. He sees a fsr every 6 months for skin check.). denies: Rash, Pruritis, Lesions, Dryness - Neurological Neurological: reports: Numbness (Right leg and both feet). denies: General weakness, Focal weakness, Headache - Psychiatric Psychiatric: reports: Depression (With the of his son. Is been devastating. He is slowly starting to come out of it but he still has moments of disbelief that this even happened.). denies: Anxiety, Suicidal, Delusions, Hallucinations - Endocrine Endocrine: denies: Polyuria, Polydypsia, Polyphagia, Intolerance to cold, Intolerance to heat - Hematologic/Lymphatic Hematologic/Lymphatic: denies: Anemia, Bruising, Petechiae, Blood clots, Lymphad enopathy Prior Level of Functionality: Independent with activities of daily living. Able to dress himself, feed himself.He still does some light [employer] [place]. Does long walks 3 times a week. Does not use any durable medical equipment. Exam - Vital Signs Reviewed Vital Signs: Yes Vital Signs: Vital Signs x48h Temp Pulse Resp BP Pulse Ox 05/22/20 00:23 36.2 C L 78 17 166/91 H 95 05/22/20 00:21 36.2 C L 91 16 190/84 H 96 - Physical Exam General Appearance: positive: No acute distress, Alert, Other (Exceedingly pleasant white male who looks younger than stated age, completely comfortable in the emergency room gurney) Eyes Bilateral: positive: PERRL, EOMI ENT: positive: Pharynx nml, No signs of dehydration Neck: positive: No JVD. negative: Stiff neck Respiratory: positive: No respiratory distress. negative: Wheezes, Rales, Rhonchi Cardiovascular: positive: Regular rate & rhythm, Systolic murmur. negative: Gallop/S4, Friction rub Peripheral Pulses: positive: 1+ Abdomen: positive: Non-tender, No organomegaly, Nml bowel sounds, No distention Skin: positive: Warm, Dry. negative: Pallor Extremities: positive: Full ROM, No pedal edema Neurologic/Psychiatric: positive: Oriented x3, CN's nml (2-12), Motor nml Conclusion/Plan - Problem List (1) Rectal bleeding Conclusion/Plan: In the past this was presumed to be from diverticular bleeding. Unfortunately has not had any follow-up since last year's episode. Plan: Observation status Serial hemograms every 6 hours General surgery consult If hemoglobin starts to drop, type and cross and transfuse if drops below 8 I explained to him that the options would be possible surgical resection of jarrett story, or transfer to [facility] for embolization. I hope that we do not get to that point. We will see what general surgery says tomorrow. (2) Hypertension Conclusion/Plan: Not on any antihypertensives. With his last day he was mildly hypotensive at 90-110 systolic at discharge. There may be some anxiety at play here. We will continue to monitor. Qualifiers: Hypertension type: essential hypertension Qualified Code(s): I10 - Essential (primary) hypertension (3) Chronic systolic heart failure Conclusion/Plan: At this time without acute exacerbation. In summation is that it is systolic heart failure by his description with work-up with cardiology.He describes a stress test. No coronary angiogram. Plan: Only medication is a diuretic. We will hold off on that until we know where he is going with his hemoglobin and hematocrit and blood pressure (4) BPH (benign prostatic hyperplasia) Conclusion/Plan: Resume Flomax Qualifiers: Lower urinary tract symptom presence: symptoms absent Qualified Code(s): N40.0 - Benign prostatic hyperplasia without lower urinary tract symptoms - Lab Results Lab results reviewed: Yes Fish Bones: 05/22/20 00:35 05/22/20 00:35 - Diagnostic Imaging Results Diagnostic Imaging Results: positive: Final report reviewed Diagnostic Imaging Results Comments: CT of abdomen reviewed from August 09, 2019. Extensive colonic diverticulosis. Possible diverticular hemorrhage and sigmoid bowel. No acute inflammatory obstructive process seen. Possible fatty liver, small hiatal hernias. Core Measures - Anticipated LOS I expect patient to be DC'd or transferred within 96 hours.: Yes - DVT/VTE - Prophylaxis VTE/DVT Device ordered at admit?: Yes
[2020-05-22] MEDS ORDERED: LACTATED RINGERS 1,000 ML IV SCH (02:00)
[2020-05-22 02:25] LABS: C. PNEUMONIAE- RESP PCR PANEL NOT DETECTED
[2020-05-22 06:08] LABS: HGB - HEMOGLOBIN 14.3 g/dL (14.0-18.0)
--- NOTE | 2020-05-22 08:32 | PHARMACY PROGRESS NOTE ---
- Best Possible Medication History Admit Date and Time: 05/22/20 0142 Processed by: Pharmacy Medication History completed: Yes Patient Interview: Completed As the person ultimately responsible for medication therapy, providers are able to order a medication from an existing home medication list in [facility] via the "Reconcile Routine" prior to Confirmation of that medication by credit support counselor. Such practice is discouraged except when the physician, in their clinical madeleine gment, deems that a medical need exists for a medication without regard to previous use.
[2020-05-22] MEDS ORDERED: SODIUM CHLORIDE FLUSH 0.9% 10 ML SYRINGE IVP SCH (09:00)
[2020-05-22 12:38] LABS: HGB - HEMOGLOBIN 14.8 g/dL (14.0-18.0)
[2020-05-22 13:19] VITALS: BP 161/87
--- NOTE | 2020-05-22 13:56 | Discharge Plan ---
Discharge Plan Problem Reviewed?: Yes Disposition: Home, Self Care Condition: Stable Prescriptions: Mineral Oil 15 ml MC UD #1 oil polyethylene glycoL 3350 [Miralax] 17 gm PO BID #30 packet Diet: Regular Activity Restrictions: Activity as Tolerated Shower Restrictions: No Driving Restrictions: No Health Concerns: You were seen in the hospital because of rectal bleeding. He has not had any further bleeding and your blood counts have remained stable and are actually increasing. You were seen by the surgeon and they recommended that you take MiraLAX twice a day and mineral oil twice a week for constipation. It is recommended that you have a colonoscopy on an outpatient basis in 6 weeks. Plan of Treatment: Please take MiraLAX twice a day and mineral oil twice a week for constipation. There were no other changes made to your medications. Care Goals: Please return to the emergency department if you develop any further episodes of bleeding. Assessment: Patient expressed understanding of the treatment plan. Additional Instructions or Follow Up instructions: Please follow-up with your primary care provider. You will need a colonoscopy in 6 weeks. No Smoking: If you smoke, Please STOP! Call for help. Follow-up with: MERA BROOKS MD [Primary Care Provider] -
--- NOTE | 2020-05-22 13:58 | DISCHARGE SUMMARY ---
"Discharge Summary Admit Date: 05/22/20 Discharge Date: 05/22/20 Discharging Provider: Fahad Chandra Primary Care Provider: Jayjay Glover Code Status: Attempt Resuscitation Condition at Discharge: Stable Discharge Disposition: Home, Self Care - DIAGNOSES Admission Diagnoses: Rectal bleeding Hypertension Chronic systolic heart failure BPH Discharge Diagnoses with Status of Each Condition: Rectal bleeding - resolved. Hypertension - stable. Chronic systolic heart failure - stable. BPH - stable. - HPI History of Present Illness: H&P per Dr. Cat: This is an 84-year-old gentleman who has a history of probable diverticulosis from a colonoscopy 6 years ago, previous history of lower GI bleed July 2019, and now returns with recurrent rectal bleeding. He states that the colonoscopy 6 years ago was very difficult to do but there was no cancer. Just diverticulosis. In July 2019 (in the middle of the Covid crisis) he had bright red blood per rectum. He was on a daily baby aspirin. In the emergency room he was hemodynamically stable and his hemoglobin was 15. CT of the abdomen and pelvis was concerning for active diverticular hemorrhage. Over the course of his stay his hemoglobin dropped to 8.8. He then stabilized. Did not require transfusion. He did not get a colonoscopy at that time because of the recommendations for reducing elective procedures in the midst of Covid. Between then and now, the patient has not been seen for colonoscopy. He did see cardiology (Dr. Beltran @ [facility])who put him on a diuretic for a diagnosis Of viral cardiomyopathy with fluid retention. Nobody ever really said he needed to follow-up colonoscopy, and his primary care provider (Dr Alistair Glover @ [facility] in [place]) felt that no further treatment was needed. The patient tends toward chronic constipation. That is been present all of his life. He uses a laxative with a mild stool softener, but does not drink much water. This current episode of bleeding is not associated with abdominal pain. He did have cramping. But no pain. No recent change in bowel or bladder habits. Has been eating a normal diet for him. No change in activities. He now presents with a bloody bowel movement that started after having severe crampy abdominal pain around 9:30 in the evening. In the emergency room he has had 3 bloody bowel movements. No fever, no chills. Blood pressure is hypertensive at 1661 90 systolic. He is not tachycardic. Hemoglobin is 15.9. Platelets 192. We are now placing him in observation for another possible lower GI bleed. - CONSULTS | PROCEDURES Consultations: General Surgery - HOSPITAL COURSE Hospital Course: Placed in observation given his rectal bleeding. He had no further episodes of bleeding and his hemoglobin has remained stable. He was evaluated by general surgery who recommended MiraLAX and mineral oil for constipation for what is likely a diverticular bleed. They recommended an outpatient colonoscopy in 6 weeks. The patient was tolerating a diet and prefer to go home and so he was discharged in a stable condition. I did ask him to return to the emergency department if he develops any further episodes of bleeding and he is agreeable to this. - ALLERGIES Allergies/Adverse Reactions: Allergies Allergy/AdvReac Type Severity Reaction Status Date / Time No Known Drug Allergies Allergy Verified 05/22/20 00:24 - MEDICATIONS Home Medications: Ambulatory Orders Medication Instructions Recorded Confirmed Acetaminophen 500 mg PO BID 08/09/19 05/22/20 Tamsulosin HCl [Flomax] 0.4 mg PO DAILY 08/09/19 05/22/20 Trazodone HCl 50 mg PO QPM 08/09/19 05/22/20 hydroCHLOROthiazide 25 mg PO DAILY 08/09/19 05/22/20 [Hydrochlorothiazide] Gabapentin [Neurontin] 400 mg PO TID capsule 08/10/19 05/22/20 Magnesium Oxide [Mag Ox] 400 mg PO QPM tablet 08/10/19 05/22/20 Mineral Oil 15 ml UD #1 oil 05/22/20 polyethylene glycoL 3350 [Miralax] 17 gm PO BID #30 packet 05/22/20 - PHYSICAL EXAM AT DISCHARGE General Appearance: positive: No acute distress, Alert Eyes Bilateral: positive: Normal inspection, Conjunctivae nml ENT: positive: ENT inspection nml Neck: positive: Nml inspection Respiratory: positive: No respiratory distress. negative: Wheezes, Rales Cardiovascular: positive: Regular rate & rhythm. negative: Tachycardia, Systolic murmur Abdomen: positive: Non-tender, No distention. negative: Tenderness, Guarding, Rebound Skin: positive: Warm, Dry Extremities: positive: No pedal edema Neurologic/Psychiatric: positive: Oriented x3, Motor nml. negative: Disoriented to person, Disoriented to place, Disoriented to time Physical Exam Other/Comments: Vital Signs - 24 hr 05/22/20 05/22/20 05/22/20 00:21 00:23 03:20 Temperature 36.2 C L 36.2 C L 36.4 C L Heart Rate 91 78 Heart Rate [ 83 Monitoring electrodes] Respiratory 16 17 19 Rate Blood Pressure 190/84 H 166/91 H Blood Pressure 159/90 H [Left Brachial artery] O2 Saturation 96 95 96 05/22/20 05/22/20 08:16 13:00 Temperature 36.3 C L Heart Rate Heart Rate [ 91 82 Monitoring electrodes] Respiratory 18 18 Rate Blood Pressure Blood Pressure 171/86 H 161/87 H [Left Brachial artery] O2 Saturation 95 95 Oxygen O2 Source Room air - LABS Result Diagrams: 05/22/20 12:33 05/22/20 00:35 Other Lab Results: Laboratory Results - last 24 hr 05/22/20 05/22/20 05/22/20 00:35 00:35 00:48 WBC 8.8 RBC 5.25 Hgb 15.9 Hct 47.8 MCV 91.0 MCH 30.3 MCHC 33.3 RDW 13.0 Plt Count 192 MPV 11.5 H Neut # (Auto) 6.9 H Lymph # (Auto) 1.0 L Culberson # (Auto) 0.7 Eos # (Auto) 0.1 Baso # (Auto) 0.0 Absolute Nucleated RBC 0.00 Nucleated RBC % 0.0 Sodium 137 Potassium 3.8 Chloride 104 Carbon Dioxide 24 Anion Gap 9.0 BUN 18 Creatinine 0.9 Estimated GFR (MDRD) 81 L Glucose 121 H Calcium 9.3 Total Bilirubin 0.9 AST 32 ALT 30 Alkaline Phosphatase 59 Total Protein 7.0 Albumin 4.7 Globulin 2.3 Albumin/Globulin Ratio 2.0 Lipase 23 Nasal Adenovirus (PCR) Nasal B. parapertussis DNA (PCR) Nasal Coronavir 229E PCR Nasal Coronavir HKU1 PCR Nasal Coronavir NL63 PCR Nasal Coronavir OC43 PCR Nasal Enterovir/Rhinovir PCR Nasal Influenza B PCR Nasal Influenza A PCR Nasal Parainfluen 1 PCR Nasal Parainfluen 2 PCR Nasal Parainfluen 3 PCR Nasal Parainfluen 4 PCR Nasal RSV (PCR) Nasal B.pertussis DNA PCR Nasal C.pneumoniae (PCR) Blair Human Metapneumo PCR Nasal M.pneumoniae (PCR) Nasal SARS-CoV-2 (PCR) Blood Type A NEGATIVE Antibody Screen NEGATIVE 05/22/20 05/22/20 05/22/20 01:30 06:00 12:33 WBC RBC Hgb 14.3 14.8 Hct 42.3 43.7 MCV MCH MCHC RDW Plt Count MPV Neut # (Auto) Lymph # (Auto) [place] # (Auto) Eos # (Auto) Baso # (Auto) Absolute Nucleated RBC Nucleated RBC % Sodium Potassium Chloride Carbon Dioxide Anion Gap BUN Creatinine Estimated GFR (MDRD) Glucose Calcium Total Bilirubin AST ALT Alkaline Phosphatase Total Protein Albumin Globulin Albumin/Globulin Ratio Lipase Nasal Adenovirus (PCR) NOT DETECTED Nasal B. parapertussis DNA (PCR) NOT DETECTED Nasal Coronavir 229E PCR NOT DETECTED Nasal Coronavir HKU1 PCR NOT DETECTED Nasal Coronavir NL63 PCR NOT DETECTED Nasal Coronavir OC43 PCR NOT DETECTED Nasal Enterovir/Rhinovir PCR NOT DETECTED Nasal Influenza B PCR NOT DETECTED Nasal Influenza A PCR NOT DETECTED Nasal Parainfluen 1 PCR NOT DETECTED Nasal Parainfluen 2 PCR NOT DETECTED Nasal Parainfluen 3 PCR NOT DETECTED Nasal Parainfluen 4 PCR NOT DETECTED Nasal RSV (PCR) NOT DETECTED Nasal B.pertussis DNA PCR NOT DETECTED Nasal C.pneumoniae (PCR) NOT DETECTED Blair Human Metapneumo PCR NOT DETECTED Nasal M.pneumoniae (PCR) NOT DETECTED Nasal SARS-CoV-2 (PCR) NOT DETECTED Blood Type Antibody Screen - FOLLOW UP Follow Up: He was asked to follow-up with his primary care provider and that he will need a colonoscopy in 6 weeks. - TIME SPENT Time Spent in Discharge (Minutes): 31"
--- NOTE | 2020-05-22 16:16 | CONSULTATION NOTE ---
Referring Provider Name of Referring Provider:: MD Em[facility] Consult Date: 05/22/20 Chief Complaint - Chief Complaint Chief Complaint: Rectal Bleeding History of Present Illness - Admitted From Admitted From:: ED - History Obtained From Records Reviewed: Provider's notes History obtained from: Patient and providers Exam Limitations: None - History of Present Illness HPI Comment/Other: Vigorous 84 year old gentleman admitted to the hospital via the ED after p resenting with BRBPR. This is the second episode in a year. Last colonoscopy was 8 years ago and reportedly "normal". He was admitted here in July of 2019 with the same complaint. Bleeding stopped before requiring transfusion. Advised to seek colonoscopy after discharge. Saw his PCP at and decided to forego repeat procedure. CT in the ED in July revealed severe sigmoid diverticulosis without evidence of other mass or lesion. Mr. Duncan reports constipation is a constant issue for him. He reports he takes a stool softener with cathartic, sometimes helpful and sometimes not. Weight is stable and her reports he feels well otherwise. Reports abdomen feels "sore" but has not had real pain. Anxious to go home. He has had no bleeding since leaving the ED. History - Past Medical History Cardiovascular: reports: Congestive heart failure, Hypertension Neuro: reports: Peripheral neuropathy, Other GI: reports: GI bleed, Diverticulitis : reports: Benign prostate hypertrophy HEENT: reports: Other (cataracts. left eye done a few months ago) Psych: reports: Depression Musculoskeletal: reports: Osteoarthritis MRSA Hx?: No Other Past Medical History: GIB - Past Surgical History General: reports: Hiatal hernia repair, Other Ortho: reports: Spine surgery HEENT: reports: Cataracts - Family & Social History Family History Comment/Other: Mom committed suicide around the age of 60. His parents marriage was a hard 1. His dad was kind of a "hard ass" and was abusive toward his mom. He decided to retire and he thinks his mom just could not take the idea of being home with them and kill herself. Dad around age 70 of congestive heart failure. 1 sister who is developing dementia. 2 sons. 1 of sudden due to obstructive sleep apnea and enlarged heart in August 2019. Other son is completely healthy in [place]. Living arrangement: At home Living Situation: With spouse/s.o. Social History Notes: He lives at home with his Second . He does not drink alcohol and denies smoking.Most of his life is spent in the [place] area. 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 He and his second had an initial home in [facility] 30 years ago. They only live there in the summer. That was about 15 years. Then they went to [place] and did not like it very much and came back to [facility] and has lived in their own home for 15 years more. - Substance History Use: Uses substance without health or social issues: NONE Abuse: Recurrent use of substance despite neg consequences: NONE Dependence: Experiences withdrawal or developed tolerances: NONE - POLST Patient has POLST: No POLST Status: Full Code Meds/Allgy - Home Medications Home Medications: Ambulatory Orders Medication Instructions Recorded Confirmed Acetaminophen 500 mg PO BID 08/09/19 05/22/20 Tamsulosin HCl [Flomax] 0.4 mg PO DAILY 08/09/19 05/22/20 Trazodone HCl 50 mg PO QPM 08/09/19 05/22/20 hydroCHLOROthiazide 25 mg PO DAILY 08/09/19 05/22/20 [Hydrochlorothiazide] Gabapentin [Neurontin] 400 mg PO TID capsule 08/10/19 05/22/20 Magnesium Oxide [Mag Ox] 400 mg PO QPM tablet 08/10/19 05/22/20 Mineral Oil 15 ml MC UD #1 oil 05/22/20 polyethylene glycoL 3350 [Miralax] 17 gm PO BID #30 packet 05/22/20 - Allergies Allergies/Adverse Reactions: Allergies Allergy/AdvReac Type Severity Reaction Status Date / Time No Known Drug Allergies Allergy Verified 05/22/20 00:24 Review of Systems - Constitutional Constitutional: denies: Fatigue, Fever, Chills, Malaise - Eyes Eyes: denies: Blurred vision - Ears, Nose & Throat Ears, Nose & Throat: denies: Tinnitus, Vertigo - Gastrointestinal Gastrointestinal: reports: Abdominal pain, Constipation. denies: Diarrhea, Change in bowel habits, Nausea, Vomiting - Genitourinary Genitourinary: denies: Frequency, Urgency - Integumentary Integumentary: denies: Rash - Neurological Neurological: denies: General weakness - All Other Systems All Other Systems: reports: Reviewed and negative Exam - Vital Signs Reviewed Vital Signs: Yes Vital Signs: Vital Signs x48h Temp Pulse Resp BP Pulse Ox 05/22/20 13:00 82 18 161/87 H 95 05/22/20 08:16 36.3 C L 91 18 171/86 H 95 - Physical Exam General Appearance: positive: No acute distress, Alert, Mild distress Eyes Bilateral: positive: Normal inspection, PERRL, EOMI ENT: positive: ENT inspection nml, Pharynx nml, No signs of dehydration Neck: positive: Nml inspection, Thyroid nml, No JVD Respiratory: positive: Chest non-tender, No respiratory distress, Breath sounds nml Cardiovascular: positive: Regular rate & rhythm, No murmur Peripheral Pulses: positive: 1+ Abdomen: positive: Tenderness (Very mild left lower quadrant discomfort with palpation.). negative: Guarding, Rebound, Abnml bowel sounds Skin: positive: Color nml, No rash Extremities: positive: Non-tender Neurologic/Psychiatric: positive: Oriented x3 Conclusion and Plan - Lab Results Laboratory Results 05/22/20 12:33: Hgb 14.8, Hct 43.7 05/22/20 06:00: Hgb 14.3, Hct 42.3 05/22/20 01:30: Nasal Adenovirus (PCR) NOT DETECTED, Nasal B. parapertussis DNA (PCR) NOT DETECTED, Nasal Coronavir 229E PCR NOT DETECTED, Nasal Coronavir HKU1 PCR NOT DETECTED, Nasal Coronavir NL63 PCR NOT DETECTED, Nasal Coronavir OC43 PCR NOT DETECTED, Nasal Enterovir/Rhinovir PCR NOT DETECTED, Nasal Influenza B PCR NOT DETECTED, Nasal Influenza A PCR NOT DETECTED, Nasal Parainfluen 1 PCR NOT DETECTED, Nasal Parainfluen 2 PCR NOT DETECTED, Nasal Parainfluen 3 PCR NOT DETECTED, Nasal Parainfluen 4 PCR NOT DETECTED, Nasal RSV (PCR) NOT DETECTED, Nasal B.pertussis DNA PCR NOT DETECTED, Nasal C.pneumoniae (PCR) NOT DETECTED, Blair Human Metapneumo PCR NOT DETECTED, Nasal M.pneumoniae (PCR) NOT DETECTED, Nasal SARS-CoV-2 (PCR) NOT DETECTED 05/22/20 00:48: Blood Type A NEGATIVE, Antibody Screen NEGATIVE 05/22/20 00:35: Sodium 137, Potassium 3.8, Chloride 104, Carbon Dioxide 24, Anion Gap 9.0, BUN 18, Creatinine 0.9, Estimated GFR (MDRD) 81 L, Glucose 121 H, Calcium 9.3, Total Bilirubin 0.9, AST 32, ALT 30, Alkaline Phosphatase 59, Total Protein 7.0, Albumin 4.7, Globulin 2.3, Albumin/Globulin Ratio 2.0, Lipase 23 05/22/20 00:35: WBC 8.8, RBC 5.25, Hgb 15.9, Hct 47.8, MCV 91.0, MCH 30.3, MCHC 33.3, RDW 13.0, Plt Count 192, MPV 11.5 H, Neut # (Auto) 6.9 H, Lymph # (Auto) 1.0 L, [place] # (Auto) 0.7, Eos # (Auto) 0.1, Baso # (Auto) 0.0, Absolute Nucleated RBC 0.00, Nucleated RBC % 0.0 - Diagnosis Diagnosis: BRBPR - Plan Plan: Likely mild diverticulitis is the source of bleeding and slight discomfort. 1. Treat constipation with Miralax BID and Mineral oil twice weekly 2. Seek diagnostic colonoscopy within 6 weeks of discharge. 3. Follow up with PCP as scheduled.
[2020-05-22] MEDS ORDERED: traZODone 50 MG TABLET PO SCH (21:00)
== END 2020-05-22 15:30 | disposition home or self-care (01) ==
LOC: ED 00:13 → MS3 01:42
PROVIDERS: ADMIT Specialist; ATTEND Specialist
DX: K92.2 Gastrointestinal hemorrhage, unspecified (principal); I11.0 Hypertensive heart disease with heart failure; I50.22 Chronic systolic (congestive) heart failure; K59.09 Other constipation; G62.9 Polyneuropathy, unspecified; F32.9 Major depressive disorder, single episode, unspecified; N40.1 Benign prostatic hyperplasia with lower urinary tract symptoms; R35.0 Frequency of micturition; R35.1 Nocturia; R39.15 Urgency of urination; M19.90 Unspecified osteoarthritis, unspecified site; H54.7 Unspecified visual loss; Z79.899 Other long term (current) drug therapy; Z86.79 Personal history of other diseases of the circulatory system
CPT/HCPCS: 80053; 83690; 85014; 85018; 85025; 86850; 86900; 86901; 87631; 99284; 99285; G0378; J7120; 0202U; 36415

== ENCOUNTER 2022-11-30 15:41 | Emergency (ER) | payer MEDICARE, OTHER ==
[2022-11-30 15:56] VITALS: BP 160/74
--- NOTE | 2022-11-30 16:35 | ED Physician Documentation ---
PD HPI HEENT - Stated complaint Stated Complaint: EAR PX - Chief complaint Chief Complaint: Heent - History obtained from History obtained from: Patient - History of Present Illness Timing - onset: How many days ago (right ear pain with less hearing the past few days.) Timing - duration: Days Timing - details: Gradual onset, Still present Location: Right ear, Nose (has had some congestion as well) Associated symptoms: Congestion. No: Fever, Headache, Cough Recently seen: Not recently seen Review of Systems Constitutional: denies: Fever, Chills Ears: reports: Loss of hearing, Ear pain. denies: Drainage/discharge, Tinnitus/ringing Nose: reports: Congestion Throat: denies: Sore throat Respiratory: denies: Cough Skin: denies: Rash, Lesions Neurologic: denies: Altered mental status, Headache PD PAST MEDICAL HISTORY - Past Medical History Cardiovascular: Congestive heart failure, Hypertension Neuro: Peripheral neuropathy, Other GI: GI bleed, Diverticulitis : Benign prostate hypertrophy HEENT: Other (cataracts. left eye done a few months ago) Psych: Depression Musculoskeletal: Osteoarthritis - Past Surgical History Past Surgical History: Yes General: Hiatal hernia repair, Other Ortho: Spine surgery HEENT: Cataracts - Present Medications Home Medications: Ambulatory Orders Medication Instructions Recorded Confirmed Acetaminophen 500 mg PO BID 08/09/19 11/06/22 Tamsulosin HCl [Flomax] 0.4 mg PO DAILY 08/09/19 11/06/22 Trazodone HCl 50 mg PO QPM 08/09/19 11/06/22 hydroCHLOROthiazide 25 mg PO DAILY 08/09/19 11/06/22 [Hydrochlorothiazide] Gabapentin [Neurontin] 400 mg PO TID capsule 08/10/19 11/06/22 Magnesium Oxide [Mag Ox] 400 mg PO QPM tablet 08/10/19 11/06/22 Mineral Oil 15 ml MC UD #1 oil 05/22/20 11/06/22 polyethylene glycoL 3350 [Miralax] 17 gm PO BID #30 packet 05/22/20 11/06/22 Amoxicillin 500 mg PO TID #21 cap 11/30/22 Neomycin/Polymyx/Hc Otic Drops 4 drops RIGHTEAR TID 4 Days #10 ml 11/30/22 [Cortisporin Ear Susp] - Allergies Allergies/Adverse Reactions: Allergies Allergy/AdvReac Type Severity Reaction Status Date / Time No Known Drug Allergies Allergy Verified 11/30/22 15:46 - Social History Does the pt smoke?: No Smoking Status: Never smoker Does the pt drink ETOH?: No Does the pt have substance abuse?: No - Immunizations Immunizations are current?: Yes - POLST Patient has POLST: No POLST Status: Full Code PD ED PE NORMAL - Vitals Vital signs reviewed: Yes - General General: Alert and oriented X 3, No acute distress, Well developed/nourished - HEENT HEENT: PERRL, EOMI, Moist mucous membranes, Pharynx benign. No: Ears normal (right canal impacted with cerumen, easily removed with currette. Canal medially with mild redness/swelling. The TM separately is red with fluid and distorted landmarks. Left ear normal with mild wax in canal. ) - Neck Neck: Supple, no meningeal sign, No adenopathy - Cardiac Cardiac: RRR, No murmur - Respiratory Respiratory: Clear bilaterally - Derm Derm: Normal color, Warm and dry, No rash - Neuro Neuro: Alert and oriented X 3, No motor deficit, Normal speech Results - Vitals Vitals: Oxygen O2 Source Room air PD Medical Decision Making - ED course Complexity details: considered differential (has some cerumen impaction right, removed with currette. This does not appear cause of pain per se but aided in seeing the eardrum, which is red with fluid behind c/w ear infection. ), d/w patient Departure - Departure Disposition: 01 Home, Self Care Clinical Impression: Cerumen impaction, Otitis media Condition: Stable Record reviewed to determine appropriate education?: Yes Instructions: ED Otitis Media Acute Adult Prescriptions: Amoxicillin 500 mg PO TID #21 cap Neomycin/Polymyx/Hc Otic Drops [Cortisporin Ear Susp] 4 drops RIGHTEAR TID 4 Days #10 ml Comments: You did have some wax buildup blocking the ear canal on the right. There is a little bit of wax on the left but not enough to block the way. I did scoop out the earwax from the right side to better visualize the eardrum. There was some irritation of the ear canal likely from some trapped fluid behind the wax. We can use cement antibiotic/anti-inflammatory eardrops to help with that. However that was not really the cause of your pain. There is redness and swelling of the eardrum and your symptoms would correspond with an ear infection and likely some irritation of the nerve that runs by the ear canal causing the pain into the jaw area. For that we will treat with oral antibiotics amoxicillin 3 times daily for a week. Also use an anti-inflammatory such as ibuprofen or naproxen to [id number] tablets 2-3 times daily for the next several days to a week as well. Add Tylenol if needed for pain. Recheck if not improving well over the next several days and resolved by 4 to 5 days. I sent your prescription to [facility] in [place]. You were given a first dose of the amoxicillin here. If you do get the prescription tonight you can take another dose before bed this evening otherwise your next dose would be tomorrow morning. Forms: PCP List Discharge Date/Time: 11/30/22 17:16
--- OUTSIDE RECORDS SUMMARY | 2022-11-30 16:59 | EXTERNAL MEDICAL SUMMARY RPT | Continuity of Care Document ---
Author Name Unknown Address [address] [place] [address] Phone Organization [facility] Address [address] [place] [address] Phone Care Team Providers Care Learning Specialist Name Role Phone Unavailable Unavailable Unavailable Milton Sal Pa-C Unavailable Unavailable Aguilar Patient Registrar, Ethel Unavailable Unavailable Aguilar Patient Registrar, Ethel Unavailable Unavailable Medications date description facility 2022-10-04 00:00 famotidine [facility] 2022-10-04 00:00 famotidine [facility] 2022-10-09 00:00 famotidine [facility] 2022-10-04 00:00 tamsulosin [facility] 2022-10-04 00:00 tamsulosin [facility] 2022-10-09 00:00 tamsulosin [facility] 2022-10-04 00:00 tamsulosin [facility] 2022-10-04 00:00 tamsulosin [facility] 2022-10-09 00:00 tamsulosin [facility] 2022-10-04 00:00 trazodone [facility] 2022-10-04 00:00 trazodone [facility] 2022-10-09 00:00 trazodone [facility] 2022-10-04 00:00 famotidine [facility] 2022-10-04 00:00 famotidine [facility] 2022-10-09 00:00 famotidine [facility] 2022-10-04 00:00 famotidine [facility] 2022-10-04 00:00 famotidine [facility] 2022-10-09 00:00 famotidine [facility] 2022-10-04 00:00 gabapentin [facility] 2022-10-04 00:00 gabapentin [facility] 2022-10-09 00:00 gabapentin [facility] 2022-10-04 00:00 losartan [facility] 2022-10-04 00:00 losartan [facility] 2022-10-09 00:00 losartan [facility] 2022-10-04 00:00 atorvastatin [facility] 2022-10-04 00:00 atorvastatin [facility] 2022-10-09 00:00 atorvastatin [facility] 2022-10-04 00:00 losartan [facility] 2022-10-04 00:00 losartan [facility] 2022-10-09 00:00 losartan [facility] 2022-10-04 00:00 atorvastatin [facility] 2022-10-04 00:00 atorvastatin [facility] 2022-10-09 00:00 atorvastatin [facility] 2022-10-04 00:00 famotidine [facility] 2022-10-04 00:00 famotidine [facility] 2022-10-09 00:00 famotidine [facility] 2022-10-04 00:00 trazodone [facility] 2022-10-04 00:00 trazodone [facility] 2022-10-09 00:00 trazodone [facility] 2022-10-04 00:00 tamsulosin [facility] 2022-10-04 00:00 tamsulosin [facility] 2022-10-09 00:00 tamsulosin [facility] 2022-10-04 00:00 trazodone [facility] 2022-10-04 00:00 trazodone [facility] 2022-10-09 00:00 trazodone [facility] 2022-10-04 00:00 gabapentin [facility] 2022-10-04 00:00 gabapentin [facility] 2022-10-09 00:00 gabapentin [facility] 2022-10-04 00:00 gabapentin [facility] 2022-10-04 00:00 gabapentin [facility] 2022-10-09 00:00 gabapentin [facility] 2022-10-04 00:00 atorvastatin [facility] 2022-10-04 00:00 atorvastatin [facility] 2022-10-09 00:00 atorvastatin [facility] 2022-10-04 00:00 atorvastatin [facility] 2022-10-04 00:00 atorvastatin [facility] 2022-10-09 00:00 atorvastatin [facility] 2022-10-04 00:00 losartan [facility] 2022-10-04 00:00 losartan [facility] 2022-10-09 00:00 losartan [facility] 2022-10-04 00:00 gabapentin [facility] 2022-10-04 00:00 gabapentin [facility] 2022-10-09 00:00 gabapentin [facility] 2022-10-04 00:00 trazodone [facility] 2022-10-04 00:00 trazodone [facility] 2022-10-09 00:00 trazodone [facility] 2022-10-04 00:00 tamsulosin [facility] 2022-10-04 00:00 tamsulosin [facility] 2022-10-09 00:00 tamsulosin [facility] 2022-10-04 00:00 losartan [facility] 2022-10-04 00:00 losartan [facility] 2022-10-09 00:00 losartan [facility] Problems date description facility 2022-10-04 00:00 Bleeding of mouth [facility] 2022-10-04 00:00 Bleeding of mouth [facility] 2022-10-04 00:00 Bleeding of mouth [facility] 2022-10-04 00:00 Bleeding from nose [facility] 2022-10-04 00:00 Bleeding from nose [facility] 2022-10-04 00:00 Bleeding from nose [facility] 2022-10-04 00:00 Petechiae [facility] 2022-10-04 00:00 Petechiae [facility] 2022-10-04 00:00 Petechiae [facility] 2022-10-04 00:00 Other and unspecifie d diseases of the oral soft tissues [facility] 2022-10-04 00:00 Other and unspecifie d diseases of the oral soft tissues [facility] 2022-10-04 00:00 Other and unspecifie d diseases of the oral soft tissues [facility] 2022-10-04 00:00 Other lesions of oral mucosa [facility] 2022-10-04 00:00 Other lesions of oral mucosa [facility] 2022-10-04 00:00 Other lesions of oral mucosa [facility] 2022-10-04 00:00 Epistaxis [facility] 2022-10-04 00:00 Epistaxis [facility] 2022-10-04 00:00 Epistaxis [facility] 2022-10-04 00:00 Spontaneous ecchymoses [facility] 2022-10-04 00:00 Spontaneous ecchymoses [facility] 2022-10-04 00:00 Spontaneous ecchymoses [facility] Procedures date description facility 2022-10-04 00:00 Visit Code Hold [facility] 2022-10-04 00:00 Visit Code Hold [facility] 2022-10-04 00:00 Visit Code Hold [facility] Vital Signs date measurement value units 2022-10-04 00:00 BMI 26.95 kg/m2 2022-10-04 00:00 BP_diastolic 70 mmHg 2022-10-04 00:00 BP_systolic 139 mmHg 2022-10-04 00:00 heart_rate 85 /min 2022-10-04 00:00 height_metric 182.88 cm 2022-10-04 00:00 height_standard 72 in 2022-10-04 00:00 respiration_rate 16 /min 2022-10-04 00:00 weight_metric 89.81 kg 2022-10-04 00:00 weight_standard 198 lb
[2022-11-30] MEDS ORDERED: AMOXICILLIN 250 MG CAPSULE PO STA (17:03)
[2022-11-30] MEDS ORDERED: IBUPROFEN 600 MG TABLET PO STA (17:03)
== END 2022-11-30 17:16 | disposition home or self-care (01) ==
LOC: ED 15:41
DX: H66.91 Otitis media, unspecified, right ear (principal); H61.21 Impacted cerumen, right ear; I11.0 Hypertensive heart disease with heart failure; I50.9 Heart failure, unspecified; Z79.899 Other long term (current) drug therapy
CPT/HCPCS: 69210; 99282; 99283; A9270